=== PATIENT | female | born 1985 | race Caucasian/White ===

== ENCOUNTER 2016-08-06 17:00 | Emergency (ER) | payer OTHER ==
[~2016-08-06] VITALS: Ht 165.1 cm; Wt 90.7 kg
[~2016-08-06 17:00] MED LIST: HYDROXYZINE HCL25 MG PO; MEDROL DOSEPAK1 PAC PO; PEPCID40 MG PO; PREDNISONE10 MG PO
--- NOTE | 2016-08-06 17:22 | ED UPPER/LOWER EXTREMITY COMPL ---
History of Present Illness General Chief Complaint: Foot or Ankle Injury Stated Complaint: L ANKLE SPRAIN Source: patient Exam Limitations: no limitations Vital Signs & Intake/Output Vital Signs & Intake/Output Vital Signs Date Time Temp Pulse Resp B/P Pulse O2 O2 Flow FiO2 Ox Delivery Rate 08/06 1858 98.3 68 18 124/74 100 Room Air 08/06 1800 99 Room Air 08/06 1704 98.5 74 16 141/83 96 Room Air Allergies Coded Allergies: NSAIDS (Non-Steroidal Anti-Inflamma (FACE SWELLING 08/06/16) Reconcile Medications Cholecalciferol (Vitamin D3) (Vitamin D) 10,000 UNIT CAPSULE 1 CAP PO DAILY SUPPLEMENT (Reported) Levocetirizine Dihydrochloride 5 MG TABLET 1 TAB PO DAILY CHRONIC URTICARIA ( Reported) Sertraline HCl 50 MG TABLET 1 TAB PO DAILY MENTAL HEALTH (Reported) Triage Note: PT STATES SHE FELL AND HURT HER LEFT ANKLE. PT ARRIVES WITH WRAP TO ANKLE WILL SWELLING. Triage Nurses Notes Reviewed? yes Onset: Abrupt Duration: constant Timing: single episode today Severity: severe Severity Numbers: 7 Pain/Injury Location: Left: Ankle. : No Patient currently breastfeeds: No HPI: Patient is a 30-year-old female who presents emergency and that today patient was ambulating stepped into a divot and twisted her left ankle resulting in pain to the left lateral ankle and medial ankle regions with associated swelling. Patient took Tylenol with minimal relief of symptoms. Denies any knee pain or foot pain. Patient states that ambulation makes worse (BRAXTON SANDHU) Past History Travel History Traveled to [place] past 21 day No Medical History Any Pertinent Medical History? 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 No (BRAXTON SANDHU) Review of Systems Review of Systems Constitutional: Reports: no symptoms. EENTM: Reports: no symptoms. Respiratory: Reports: no symptoms. Cardiovascular: Reports: no symptoms. Gastrointestinal/Abdominal: Reports: no symptoms. Genitourinary: Reports: no symptoms. Musculoskeletal: Reports: see HPI, joint pain. Skin: Reports: no symptoms. Neurological/Psychological: Reports: no symptoms. Hematologic/Endocrine: Reports: no symptoms. Immunological: Reports: no symptoms. All Other Systems: Reviewed and Negative (BRAXTON SANDHU) Physical Exam Physical Exam General Appearance: no apparent distress, comfortable Neurologic/Tendon: normal sensation, normal motor functions, normal tendon functions, responds to pain, no evidence tendon injury, no pulse deficit Skin: intact, normal color, warm/dry Comments: Well-developed well-nourished no apparent distress. HEENT: Atraumatic, extraocular motion intact Neck: Supple, no lymphadenopathy Back: Nontender Respiratory: No respiratory distress Extremities: Left knee nontender full active range of motion Left ankle noted and lateral malleoli swelling and point tenderness mild medial malleoli point tenderness decreased active range of motion noted with plantarflexion and dorsiflexion Left foot nontender pedal pulse +2 Left lower extremity dermatomes intact Neuro: Alert and oriented x3 Psych: Mood affect normal, normal memory normal judgment. (BRAXTON SANDHU) Progress Differential Diagnosis: arterial insufficiency, compartment syndrome, contusion, dislocation, DVT, fracture, gout, septic arthritis, sprain, tendon injury Plan of Care: Orders Procedure Date/time Status Durable Medical Equipment 08/06 1833 Active Patient was offered pain medications and declined No osseous injury noted on x-rays for where patient was symptomatically painful. Patient will be treated for concerns of ankle sprain. Yonathan wrap and Aircast stirrup was applied pre-and post-neurovascular was intact. (BRAXTON SANDHU) Diagnostic Imaging: Viewed by Me: Radiology Read. Radiology Impression: no fracture Comments: PATIENT: QUOC PAREDES PRESENT AGE: 30 PATIENT ACCOUNT NO: [id number] : 87 LOCATION: [facility] ORDERING PHYSICIAN: BRAXTON APONTE SERVICE DATE: 08/06/164439 EXAM TYPE: RAD - XRY-ANKLE 3 OR MORE VIEWS L EXAMINATION: XR ANKLE, LEFT CLINICAL INFORMATION: Pain and swelling after injury. COMPARISON: None TECHNIQUE: AP, lateral, and mortise views of the left ankle. FINDINGS: There is marked soft tissue swelling of the left ankle, most pronounced laterally and anteriorly. No fracture or malalignment. Ankle mortise is symmetric. Bone mineralization is normal. No talar osteochondral injuries. IMPRESSION: Marked soft tissue swelling at the anterior and lateral aspects of the ankle. No acute fracture or malalignment. DICTATED BY: GE MOODY MD DATE/TIME DICTATED:08/06/161825 COMMERCIAL RELIEF DRIVER:MARJORIE (BRAXTON SANDHU) Departure Departure Disposition: HOME OR SELF CARE Condition: Stable Clinical Impression Primary Impression: Left ankle sprain Referrals: RAFAELA ORTIZ,KATHY TURNER MD,ABIGAIL (PCP/Family) Additional Instructions: As discussed begin icing the area directly 20 minutes every 2 hours, continue [id number] Tylenol for pain began to elevate YOUR foot for swelling. Begin using the Yonathan wrap and Aircast for support and swelling If no better in one week follow-up with orthopedic Dr. RUSSO If symptoms worsen return to emergency room Begin using the crutches UNTIL YOU CAN walk without pain Departure Forms: Customer Survey General Discharge Information (BRAXTON SANDHU) PA/MEDICAL RESEARCH TECH Co-Sign Statement Statement: ED Attending supervision documentation- [] I saw and evaluated the patient. I have also reviewed all the pertinent lab results and diagnostic results. I agree with the findings and the plan of care as documented in the PA's/MEDICAL RESEARCH TECH's documentation. [X] I have reviewed the ED Record and agree with the PA's/MEDICAL RESEARCH TECH's documentation. [] Additions or exceptions (if any) to the PAs/MEDICAL RESEARCH TECH's note and plan are summarized below: [] (PATRICK ORTIZ,MELVIN)
[2016-08-06] MEDS ORDERED: SERTRALINE HCL50 MG PO (17:53)
[2016-08-06] MEDS ORDERED: LEVOCETIRIZINE D5 M1 PO (17:53)
[2016-08-06] MEDS ORDERED: VITAMIN D10000 UNIT PO (17:54)
--- NOTE | 2016-08-06 18:30 | RADIOLOGY REPORT ---
EXAMINATION: XR ANKLE, LEFT CLINICAL INFORMATION: Pain and swelling after injury. COMPARISON: None TECHNIQUE: AP, lateral, and mortise views of the left ankle. FINDINGS: There is marked soft tissue swelling of the left ankle, most pronounced laterally and anteriorly. No fracture or malalignment. Ankle mortise is symmetric. Bone mineralization is normal. No talar osteochondral injuries. IMPRESSION: Marked soft tissue swelling at the anterior and lateral aspects of the ankle. No acute fracture or malalignment.
[2016-08-06 18:58] VITALS: BP 124/74
== END 2016-08-06 18:59 ==
LOC: ERH 17:00
DX: S93.402A Sprain of unspecified ligament of left ankle, initial encounter (principal); X58.XXXA Exposure to other specified factors, initial encounter; Y93.01 Activity, walking, marching and hiking; Y92.9 Unspecified place or not applicable
CPT/HCPCS: 73610-LT

== ENCOUNTER 2018-01-11 05:37 | Inpatient (IN) | payer OTHER ==
[~2018-01-11] VITALS: Ht 165.1 cm; Wt 112.5 kg
[~2018-01-11 05:37] MED LIST changes: +IBUPROFEN600 M1 PO; +LEVOCETIRIZINE D5 M1 PO; +PREDNISOLO15 MG/5 M4 PO; +PROMETHAZINE-C118 ML PO; +SERTRALINE HCL50 MG PO; +VENTOLIN HFA18 GM INH; +VITAMIN D10000 UNIT PO
[2018-01-11 10:06] LABS: ABSOLUTE BASOPHIL COUNT 0 /CUMM (0.0-0.2); ABSOLUTE EOSINOPHIL COUNT 0 /CUMM (0.0-0.7); ABSOLUTE GRANULOCYTE CT 6.8 /CUMM (1.4-6.5); ABSOLUTE LYMPH COUNT 1.2 /CUMM (1.2-3.4); ABSOLUTE MONOCYTE COUNT 0.4 /CUMM (0.10-0.60); BASOPHIL % 0.4 % (0.0-2.0); EOSINOPHIL % 0.3 % (0-5); GRANULOCYTE % 80.3 % (42.2-75.2); HEMATOCRIT 32.1 % (37-47); MEAN CORPUSCULAR HGB 28.4 PG (27.0-31.0); MEAN CORPUSCULAR HGB CONC 33.8 G/DL (33.0-37.0); MEAN CORPUSCULAR VOLUME 84.1 FL (81.0-99.0); MEAN PLATELET VOLUME 8.5 FL (7.4-10.4); PLATELET COUNT 229 /CUMM (130-400); RBC DISTRIBUTION WIDTH 14.2 % (11.5-14.5); RED BLOOD CELL CT 3.82 /CUMM (4.20-5.40); WHITE BLOOD CELL COUNT 8.4 /CUMM (4.8-10.8)
[2018-01-11 10:49] VITALS: BP 134/62
[2018-01-11] MEDS ORDERED: PRENATAL TABLE1 EAC2 PO (10:52)
--- NOTE | 2018-01-11 11:50 | History & Physical ---
General Information and HPI MD Statement: I have seen and personally examined QUOC PAREDES and documented this H&P. Source of Information: patient, family, old records Exam Limitations: no limitations History of Present Illness: The patient is a 32 year old at 37 weeks and 3 days gestation who presented with a chief complaint of painful ctx, increasing intensity x 5 d. Seen on L&D 4 days ago, ctx spaced out a little w/ IV hydration. Ucx from that day neg. Ctx woke pt from sleep at 2a, presented to L&D 5a, received IV hydration and reports increasing intensity of ctx. H/o C/S x 2. Desires tubal sterilization. AP care also c/b obesity, anxiety on Zoloft, Rh neg s/p rhogam. Allergies/Medications Allergies: Coded Allergies: NSAIDS (Non-Steroidal Anti-Inflamma (FACE SWELLING 08/06/16) Home Med list Cholecalciferol (Vitamin D3) (Vitamin D) 10,000 UNIT CAPSULE 1 CAP PO DAILY SUPPLEMENT (Reported) Levocetirizine Dihydrochloride 5 MG TABLET 1 TAB PO DAILY CHRONIC URTICARIA ( Reported) Vit No.130/Iron/FA ( Tablet) 27 MG IRON-800 MCG TABLET 1 TAB PO DAILY (Reported) Sertraline HCl 50 MG TABLET 1 TAB PO DAILY MENTAL HEALTH (Reported) Past History all source intelligence History : 3 Para: 2 Last Menstrual Period: 04/24/17 Estimated Delivery Date: 01/29/18 Past all source intelligence History: none Past Pregnancies Past Pregnancies: 1 Date of Delivery: 10/17/10 Gestational Age: 37 Length of Labor: 19hrs Weight: 6#14 Type of Delivery: Anesthesia: epidural Place of Delivery: [facility] Complications: none Past Pregnancies: 2 Date of Delivery: 06/30/2013 Gestational Age: 37 Weight: 6#8 Type of Delivery: Anesthesia: epidural Place of Delivery: [facility] Complications: none Medical History Blood Transfusion Hx: Yes (2000 s/p pelvic fx ) Neurological: NONE EENT: NONE Cardiovascular: NONE Respiratory: NONE Gastrointestinal: NONE Hepatic: NONE Renal: NONE Musculoskeletal: CHRONIC URTICARIA Psychiatric: anxiety Endocrine: NONE Blood Disorders: NONE Cancer(s): NONE 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 Other Medical Hx: pelvic fx 2000 s/p ski accident - no surgery Surgical History Pertinent Surgical History: (x 2) Past Family/Social History Psychosocial History Smoking Status: Never Smoked Exam & Diagnostic Data Last 24 Hrs of Vital Signs/I&O Vital Signs Date Time Temp Pulse Resp B/P B/P Pulse O2 O2 Flow FiO2 Mean Ox Delivery Rate 01/11 1049 134/62 Intake & Output 01/11 1600 01/11 0800 01/11 0000 Intake Total Output Total Balance Patient 248 lb Weight Obstetric Exam Wgt Gained During : 15# Pelvimetry: n/a Dilation (cm): 0 Effacement (%): 0 Station: -4 Membranes: intact Fluid: unknown Fundal Height (cm): 38 Multiple Gestation? No Contractions: q 5 Infant #1 - FHR Baseline: 130 Category: 1 Estimated Weight: 3200 Presentation: vtx Patient for Induction? No Physical Exam: nad abd soft nt gravid Labs Blood Type & Rh: AB neg Antibody Screen: neg Hct/Hgb & Platelets #1: 11.8/ 36.2, 270 Hct/Hgb & Platelets #2: 10.4/ 35, 260 Rubella: Non-Imm VDRL #1: neg VDRL #2: neg HbsAg: neg HIV #1: neg HIV #2 neg 1 Hr P Group B Strep: pos Initial Ultrasound: 06/26 siup 8+3 Anatomy Ultrasound: 09/11 nl griselda Genetic Testing: declined Last 24 Hrs of Labs/Mino: Laboratory Tests 01/11/18 0930: CBC w Diff NO MAN DIFF REQ, RBC 3.82 L, MCV 84.1, MCH 28.4, MCHC 33.8, RDW 14.2 , MPV 8.5, Gran % 80.3 H, Lymphocytes % 14.0 L, Monocytes % 5.0, Eosinophils % 0.3, Basophils % 0.4, Absolute Granulocytes 6.8 H, Absolute Lymphocytes 1.2, Absolute Monocytes 0.4, Absolute Eosinophils 0, Absolute Basophils 0 01/11/18 0555: Urinalysis LIGHT H, Urine Color YEL, Urine Clarity CLDY H, Urine pH 7.0, Ur Specific [place] 1.010, Urine Protein NEG, Urine Ketones NEG, Urine Nitrite NEG, Urine Bilirubin NEG, Urine Urobilinogen 0.2, Ur Leukocyte Esterase MOD H, Ur Microscopic SEDIMENT EXAMINED, Urine RBC 1-3, Urine WBC 10-15 H, Ur Epithelial Cells MANY H, Urine Bacteria MOD H, Urine Mucus FEW, Urine Hemoglobin NEG, Urine Glucose NEG Microbiology 01/11 1044 URINE ROUT: Urine Culture - ORD Assessment/Plan Assessment/Plan: 32yo @ 37+3 wks h/o C/S x 2, with persistent painful ctx, increasing in intensity despite IV hydration. Will proceed with Repeat delivery. Pt also desires BTL. and maternal status reassuring. -Admit for C/S, BTL -NPO -IV -peds and anesthesia aware -civil litigation attorney to [place] As Ranked By This Provider Problem List: 1. Core Measures Venous Thromboembolism VTE Risk Factors / No Mechanical VTE Prophylaxis d/t Other (needs Lovenox) No VTE Pharm Prophylaxis d/t NA PharmProphylax ordered Attending MD Review Statement Attending Statement Attending MD Statement: examined this patient, discussed with family, discussed w/nursing
--- NOTE | 2018-01-11 14:55 | Operative Report ---
Operative/Inv Procedure Report Surgery Date: 01/11/18 Name of Procedure: Repeat low transverse section 3, bilateral tubal ligation via modified Deepika method Pre-Operative Diagnosis: at 37 weeks and 3 days, history of 2, with persistent painful contractions. Multipara, desires permanent sterilization. Post-Operative Diagnosis: Same Estimated Blood Loss: 700 cc Surgeon/Instructor Robotics: Venkatesh ORTIZ,Lalito Moore MD, Karyna Anesthesia: block Drains: Freeman to gravity Specimens: Portions of right and left fallopian tubes Complications: None Condition: Stable Operative/Procedure Note Note: The patient was taken to the operating room where her epidural anesthesia was obtained without difficulty. She was then placed in dorsal supine position with a leftward tilt. She was prepped and draped in the usual sterile fashion. A Pfannenstiel skin incision was then made with a scalpel and carried through to the underlying layer of fascia. The fascia was incised in the midline and the incision extended laterally with the Bernal scissors. The inferior and superior portions of the fascia were then grasped with a [place] clamps elevated and sharply and bluntly dissected off the underlying layer of rectus muscle. The rectus was then in the midline. The peritoneum was identified and entered bluntly. The bladder blade was then inserted. Attention was then turned to the vesicouterine peritoneum which was grasped, incised with the Metzenbaum scissors and a bladder flap sharply created. The bladder blade was then reinserted. The uterine incision was then made with the scalpel and bluntly extended laterally. Clear fluid was noted upon rupture of amniotic membranes. The baby was then delivered from JOHNNY position without difficulty. The mouth and nose were bulb suctioned. The cord was clamped and cut. The was handed off to the waiting pathology technologist. Cord gases were sent. The three-vessel cord placenta was then delivered with fundal massage and was intact. The uterus was then exteriorized. The uterine incision was then closed with 0 Vicryl in a running locking fashion. Additional 0 Vicryl [id number] sutures were then applied and excellent hemostasis was noted. Attention was then turned to the patient's right fallopian tube which was then grasped with the [place] clamp and elevated. An approximately 3 cm knuckle of tube was tied twice with plain suture, excised with the Metzenbaum scissors, and sent to pathology. The ends were then trimmed and cauterized with the Bovie. Good hemostasis was noted. The same procedure was then performed on the patient's left fallopian tube and excellent hemostasis was noted. The uterus was then returned to the patient's abdomen. The bladder blade was then reinserted. 1 g of Saima was applied to the patient's uterine incision and again excellent hemostasis was noted. The gutters were then examined and cleared of all clots and debris. The bladder blade was removed and the rectus muscle was then reapproximated with 0 Vicryl. The fascia was reapproximated with 0 Vicryl in a running fashion. The subcuticular layer was reapproximated with 2-0 Vicryl interrupted sutures. The skin was closed with 4-0 Vicryl in a subcuticular fashion. All counts were reported to be correct 2. The patient was taken to the recovery room in stable condition.
[2018-01-12 08:55] LABS: ABSOLUTE BASOPHIL COUNT 0 /CUMM (0.0-0.2); ABSOLUTE EOSINOPHIL COUNT 0.1 /CUMM (0.0-0.7); ABSOLUTE GRANULOCYTE CT 6.5 /CUMM (1.4-6.5); ABSOLUTE LYMPH COUNT 1.3 /CUMM (1.2-3.4); ABSOLUTE MONOCYTE COUNT 0.5 /CUMM (0.10-0.60); BASOPHIL % 0.5 % (0.0-2.0); EOSINOPHIL % 0.7 % (0-5); GRANULOCYTE % 77.1 % (42.2-75.2); HEMATOCRIT 29.9 % (37-47); MEAN CORPUSCULAR HGB 28.5 PG (27.0-31.0); MEAN CORPUSCULAR VOLUME 83.9 FL (81.0-99.0); MEAN PLATELET VOLUME 8.8 FL (7.4-10.4); PLATELET COUNT 210 /CUMM (130-400); RBC DISTRIBUTION WIDTH 14.4 % (11.5-14.5); RED BLOOD CELL CT 3.57 /CUMM (4.20-5.40); WHITE BLOOD CELL COUNT 8.4 /CUMM (4.8-10.8)
--- NOTE | 2018-01-12 14:35 | PN- OBGYN ---
Surgical Brief Attending Note Brief Attending Note: pt feeling well. amb / void / momo po. no flatus. pain well controlled w/ tylenol and perc. no avalos / cp / sob. +bf. afeb, v/ss nad abd soft nt nd ff inc c/d/i alan min lochia ext nt tr b/l le ed hct 32-->29 a/p pod 1 s/p rpt c/s x 3/ btl, doing well -enc oob / amb -pain mgmt -routine pop care
--- NOTE | 2018-01-13 13:49 | PN- OBGYN ---
Surgical Brief Attending Note Brief Attending Note: pt feeling well. desires d/c home today. pain well controlled. amb / void / momo po. +flatus and bm. afeb, v/ss nad abd soft nt nd ff inc c/d/i alan min lochia ext nt tr b/l le ed a/p pod 2 s/p Rpt c/s / btl, doing well -d/c home today per pt request -d/c instructions reviewed -mmr -rto 2 wks post-op check
== END 2018-01-13 14:30 | DRG 766 ==
LOC: CBCO 05:37 → GNO 10:35
PROVIDERS: Obstetrics & Gynecology
PROC: 0UT70ZZ Resection of Bilateral Fallopian Tubes, Open Approach (ICD-10-PCS; principal; 2018-01-11)
PROC: 10D00Z1 Extraction of Products of Conception, Low, Open Approach (ICD-10-PCS; principal; 2018-01-11)
DX: O34.211 Maternal care for low transverse scar from previous cesarean delivery (principal); N85.8 Other specified noninflammatory disorders of uterus; Z3A.37 37 weeks gestation of pregnancy; Z37.0 Single live birth; Z30.2 Encounter for sterilization
CPT/HCPCS: GNOS; 36415; 81001; 87086; 96360; 96361; G0463; J0131; J1650; J7120